=== PATIENT | male | born 1945 | race Caucasian/White ===

== ENCOUNTER → 2022-02-05 13:25 | Outpatient (BNVA) | payer OTHER, SELFPAY | PROVIDERS: Visit Provider Specialist | DX: R25.1 Tremor, unspecified (principal); M62.838 Other muscle spasm; R56.9 Unspecified convulsions | CPT/HCPCS: 95816 ==

== ENCOUNTER → 2022-09-13 09:32 | Outpatient (BNVA) | payer OTHER, SELFPAY | PROVIDERS: Visit Provider Specialist | DX: G25.3 Myoclonus (principal); G25.0 Essential tremor; G47.30 Sleep apnea, unspecified | CPT/HCPCS: 99204 ==

== ENCOUNTER → 2023-01-01 12:31 | Outpatient (BNVA) | payer OTHER, SELFPAY | PROVIDERS: Visit Provider Specialist | DX: G25.0 Essential tremor (principal); G25.3 Myoclonus | CPT/HCPCS: 99214 ==